=== PATIENT | female | born 1985 | race Caucasian/White ===

== ENCOUNTER 2018-12-30 13:29 | Emergency (ER) | payer OTHER ==
[2018-12-30 13:34] VITALS: BP 107/65; PULSE 81; TEMP 98.3; BMI 30.2
--- NOTE | 2018-12-30 13:57 | PDOC ---
History of Present Illness - General Chief Complaint: Urinary Problem Stated Complaint: POSSIBLE UTI Time Seen by Provider: 12/30/18 13:43 History Source: Patient Exam Limitations: No Limitations - History of Present Illness Initial Comments: 12/30/18 14:12 Complaints of new onset of burning approximately 2 to 3 hours ago. Suffers from UTIs was and was concerned about recurrence. Last urinary tract infection was maximally 3 months ago that was treated with antibiotics. Patient is uncertain as to the name of the medications. Is this a multiple visit Asthma Patient?: Yes Timing/Duration: unsure, 24 hours Severity: mild Associated Symptoms: reports: denies symptoms Past History - Travel Traveled outside of the country in the last 30 days: No Close contact w/someone who was outside of country & ill: No - Past Medical History Allergies/Adverse Reactions: Allergies Allergy/AdvReac Type Severity Reaction Status Date / Time Penicillins Allergy Verified 12/30/18 13:34 Home Medications: Ambulatory Orders NK [No Known Home Medication] 08/19/17 COPD: No Thyroid Disease: Yes - Surgical History Abdominal Surgery: Yes (tummy tuck, lipo) - Immunization History Immunization Up to Date: Yes - Psycho Social/Smoking Cessation Hx Smoking History: Never smoked Have you smoked in the past 12 months: No Hx Alcohol Use: No Drug/Substance Use Hx: No Substance Use Type: None Review of Systems - Review of Systems Able to Perform ROS?: Yes Is the patient limited Latvian proficient: Yes Constitutional: Yes: Symptoms Reported, See HPI, Malaise HEENTM: Yes: See HPI. No: Symptoms Reported Respiratory: Yes: See HPI. No: Symptoms reported, Cough ABD/GI: Yes: See HPI. No: Symptoms Reported, Constipated, Diarrhea, Nausea : Yes: Symptoms Reported, See HPI, Dysuria Musculoskeletal: No: Symptoms Reported Integumentary: No: Symptoms Reported Neurological: Yes: See HPI. No: Symptoms reported All Other Systems: Reviewed and Negative *Physical Exam - Vital Signs Last Vital Signs Temp Pulse Resp BP Pulse Ox 98.3 F 81 18 107/65 99 12/30/18 13:32 12/30/18 13:32 12/30/18 13:32 12/30/18 13:32 12/30/18 13:32 - Physical Exam General Appearance: Yes: Nourished, Appropriately Dressed HEENT: positive: JAMIE, Normal ENT Inspection, TMs Normal, Pharynx Normal Neck: positive: Tender, Supple Respiratory/Chest: positive: Lungs Clear Gastrointestinal/Abdominal: positive: Soft. negative: Tender Musculoskeletal: positive: Normal Inspection Extremity: positive: Normal Capillary Refill, Normal Inspection, Normal Range of Motion Integumentary: positive: Normal Color, Dry, Warm Neurologic: positive: kst operator II-XII NML intact, Fully Oriented, Alert, Normal Mood/ Affect, Normal Response, Motor Strength 06/24 Discharge - Discharge Information Problems reviewed: Yes Clinical Impression/Diagnosis: Dysuria Condition: Stable Disposition: HOME - Admission No - Follow up/Referral Referrals: Juan Jose Jorge MD [Primary Care Provider] - - Patient Discharge Instructions Patient Printed Discharge Instructions: DI for Dysuria -- Adult Additional Instructions: Rest, drink lots of fluids: Teas, water, soups Avoid contact with others until fevers and symptoms resolved Lots of handwashing and good hygiene Continue [id number] medications for symptomatic relief Tylenol or Motrin for fever and pain Return to emergency department for worsened symptoms, fevers, dehydration - Post Discharge Activity
[2018-12-30 14:43] LABS: PH,URINE 5.5 (5.0-8.0); URINE APPEARANCE CLEAR; URINE BILIRUBIN NEGATIVE (NEGATIVE); URINE COLOR YELLOW; URINE GLUCOSE (UA) NEGATIVE (NEGATIVE); URINE KETONE NEGATIVE (NEGATIVE); URINE LEUK ESTERASE NEGATIVE (NEGATIVE); URINE NITRITE NEGATIVE (NEGATIVE); URINE PROTEIN NEGATIVE (NEGATIVE); URINE UROBILINOGEN 0.2 mg/dL (0.2-1.0)
== END 2018-12-30 15:06 | disposition home or self-care (01) ==
LOC: JERFT 13:29
DX: R30.0 Dysuria (principal); Z87.440 Personal history of urinary (tract) infections; Z88.0 Allergy status to penicillin
CPT/HCPCS: 81003; 84703; 87086; 99282-25

== ENCOUNTER 2019-08-24 10:58 | Emergency (ER) | payer OTHER ==
--- NOTE | 2019-08-24 11:18 | PDOC ---
Rapid Medical Evaluation Chief Complaint: Abnormal Lab Results (Outside) Time Seen by Provider: 08/24/19 11:12 Medical Evaluation: Allergies Allergy/AdvReac Type Severity Reaction Status Date / Time Penicillins Allergy Verified 12/30/18 13:34 08/24/19 11:15 HPI: The patient is a 33 F with no sig Pmhx presents for EKG requested by PCP for routine exam. 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 report no symptoms ROS: NEGATIVE: difficulty breathing, shortness of breath, chest pain, lightheadedness, dizziness, nausea, vomiting and diarrhea. Other 12 point ROS reviewed and negative. Exam: General: NAD, Well-Appearing, Awake, Alert Oriented x3. Vital signs stable. ENT: No rhinorrhea or nasal congestion. Neck: FROM, no midline tenderness. Lungs: Clear to auscultation bilaterally without wheezes, rhonchi or rales. Normal excursion. Patient is able to speak in full sentences. Heart: HR: [ ] Regular rhythm, S1-S2 present, no murmurs rubs or gallops. Abdomen: Non-distended. MSK/Extremities: No decrease ROM, No obvious deformities. No obvious cyanosis noted. Neuro: Normal Gait, Cranial Nerves II through XII Grossly Intact. Skin: No obvious rashes, bruising. Color Normal Appearing. Assessment/Plan: routine exam. ASSESSMENT: Denies recent travel and known Covid exposure. Treatment: EKG done pt stable for d/c Discharge Disposition - Diagnosis Nonspecific abnormal electrocardiogram (ECG) (EKG) - Discharge Dispostion Disposition: HOME Condition at time of disposition: Stable Decision to Admit order: No - Referrals Referrals: Juan Jose Jorge MD [Primary Care Provider] - - Patient Instructions - Post Discharge Activity
[2019-08-24 11:34] VITALS: BP 118/69; PULSE 88; TEMP 98.1; BMI 24.3
--- NOTE | 2019-08-25 14:06 | EKG ---
Test Reason : Blood Pressure : / mmHG Vent. Rate : 074 BPM Atrial Rate : 074 BPM P-R Int : 144 ms QRS Dur : 088 ms QT Int : 420 ms P-R-T Axes : 033 022 041 degrees QTc Int : 466 ms NORMAL SINUS RHYTHM NORMAL ECG NO PREVIOUS ECGS AVAILABLE Confirmed by STEPHANIE PARMAR MD ([id number]) on 08/25/2019 2:06:25 PM Referred By: Confirmed By:STEPHANIE PARMAR MD
== END 2019-08-24 11:36 | disposition home or self-care (01) ==
LOC: JER 10:58
DX: R94.31 Abnormal electrocardiogram [ECG] [EKG] (principal)
CPT/HCPCS: 93005; 93010; 99283-25

== ENCOUNTER 2020-07-02 19:50 | Emergency (ER) | payer OTHER ==
[2020-07-02 19:58] VITALS: BP 112/72; PULSE 88; TEMP 98.3; BMI 29.2
[2020-07-02 21:12] LABS: EPI CELLS 20 /uL (0-25.1); HYALINE CASTS 1 /uL (0-3.1); PH,URINE 5.5 (5.0-8.0); URINE APPEARANCE CLOUDY; URINE BACTERIA 1462 /uL (0-1359); URINE BILIRUBIN NEGATIVE (NEGATIVE); URINE COLOR YELLOW; URINE GLUCOSE (UA) NEGATIVE (NEGATIVE); URINE KETONE TRACE (NEGATIVE); URINE LEUK ESTERASE 2+ (NEGATIVE); URINE NITRITE NEGATIVE (NEGATIVE); URINE PROTEIN TRACE (NEGATIVE); URINE UROBILINOGEN 0.2 mg/dL (0.2-1.0); URINE WBC 1626 /uL (0-25.8)
[2020-07-02 21:19] LABS: HCG,QUALITATIVE URINE NEGATIVE; URINE RBC 59.2 /uL (0-23.9)
[2020-07-02] MEDS ORDERED: CEPHALEXIN MONOHYDRATE 500 MG CAPSULE (UD) PO ONE (21:33)
[2020-07-02] MEDS ORDERED: CEPHALEXIN MONOHYDRATE 500 MG CAPSULE (UD) ONE (21:50)
[2020-07-03] MEDS ORDERED: PHENAZOPYRIDINE HCL 100 MG TABLET (FP) PO SCH (09:00)
== END 2020-07-02 21:52 | disposition home or self-care (01) ==
LOC: JER 19:50
DX: N30.00 Acute cystitis without hematuria (principal)
CPT/HCPCS: 81003; 84703; 87086; 87186; 99284-25

== ENCOUNTER 2020-08-07 09:23 | Emergency (ER) | payer OTHER ==
[2020-08-07 09:29] VITALS: BP 127/81; PULSE 115; TEMP 98.6; BMI 29.2
[2020-08-07] MEDS ORDERED: guaiFENesin/D-METHORPHAN HB 10 ML UNIT-DOSE CUPS PO ONE (09:43)
[2020-08-07] MEDS ORDERED: ALBUTEROL SO4 2.5/IPRATROPIUM 0.5 INH SOL 3 ML VIAL.NEB. NEB ONE ×2 (09:43→10:08)
[2020-08-07] MEDS ORDERED: ACETAMINOPHEN 325 MG TABLET (FP) PO ONE (09:43)
[2020-08-07] MEDS ORDERED: ACETAMINOPHEN 325 MG TABLET (FP) ONE (10:08)
[2020-08-07] MEDS ORDERED: guaiFENesin/D-METHORPHAN HB 10 ML UNIT-DOSE CUPS ONE (10:08)
== END 2020-08-07 13:12 | disposition home or self-care (01) ==
LOC: JER 09:23
PROC: 3E0F7GC Introduction of Other Therapeutic Substance into Respiratory Tract, Via Natural or Artificial Opening (ICD-10-PCS; principal; 2020-08-07)
DX: R05 Cough (principal)
CPT/HCPCS: 71046-TC-FY; 99283-25

== ENCOUNTER 2020-12-04 07:04 | Emergency (ER) | payer OTHER ==
[2020-12-04 08:23] VITALS: BP 112/70; PULSE 80; TEMP 97.5; BMI 26.3
[2020-12-04 09:44] LABS: EPI CELLS 22 /uL (0-25.1); HYALINE CASTS 2 /uL (0-3.1); PH,URINE 5.5 (5.0-8.0); URINE APPEARANCE CLOUDY; URINE BACTERIA >9,000 /uL (0-1359); URINE BILIRUBIN NEGATIVE (NEGATIVE); URINE COLOR YELLOW; URINE GLUCOSE (UA) NEGATIVE (NEGATIVE); URINE KETONE NEGATIVE (NEGATIVE); URINE LEUK ESTERASE 3+ (NEGATIVE); URINE NITRITE NEGATIVE (NEGATIVE); URINE PROTEIN 1+ (NEGATIVE); URINE RBC 56 /uL (0-23.9); URINE WBC 3540 /uL (0-25.8)
== END 2020-12-04 10:55 | disposition home or self-care (01) ==
LOC: JER 07:04 → JERFT 07:04
DX: N30.00 Acute cystitis without hematuria (principal)
CPT/HCPCS: 36415; 81003; 87086; 87186; 87491; 87591; 99283-25

== ENCOUNTER 2021-02-11 14:47 | Emergency (ER) | payer OTHER ==
[2021-02-12 07:08] LABS: SARS-CoV-2 NAA Not Detected (Not Detected)
== END 2021-02-11 15:14 | disposition home or self-care (01) ==
LOC: JVIRT 14:47
DX: R09.81 Nasal congestion (principal); Z20.822 Contact with and (suspected) exposure to COVID-19
CPT/HCPCS: C9803; Q3014-GT; U0003; U0005

== ENCOUNTER 2021-06-07 06:12 | Day surgery (SDC) | payer OTHER ==
[2021-06-07] MEDS ORDERED: CYANOCOBALAMIN (VITAMIN B-12) 1000 MCG/1 ML VIAL IM ONE (10:00)
[2021-06-07] MEDS ORDERED: IRON SUCROSE INJECTION 300 MG in SODIUM CHLORIDE 250 ML IVPB ONE (10:00)
[2021-06-07 16:17] VITALS: BP 92/53; PULSE 83; TEMP 98.2
== END 2021-06-07 11:30 | disposition home or self-care (01) ==
LOC: JONCNONCHE 06:12
PROVIDERS: ATTEND Internal Medicine Hematology & Oncology
PROC: 3E033GC Introduction of Other Therapeutic Substance into Peripheral Vein, Percutaneous Approach (ICD-10-PCS; principal; 2021-06-07)
DX: E61.1 Iron deficiency (principal); E53.8 Deficiency of other specified B group vitamins
CPT/HCPCS: 96365; 96366; J1756

== ENCOUNTER 2021-06-14 06:24 | Day surgery (SDC) | payer OTHER ==
[2021-06-14] MEDS ORDERED: CYANOCOBALAMIN (VITAMIN B-12) 1000 MCG/1 ML VIAL IM ONE (10:00)
[2021-06-14] MEDS ORDERED: IRON SUCROSE INJECTION 300 MG in SODIUM CHLORIDE 250 ML IVPB ONE (10:00)
[2021-06-14 16:43] VITALS: TEMP 98.2
[2021-06-14 16:44] VITALS: BP 117/73; PULSE 74
== END 2021-06-14 11:50 | disposition home or self-care (01) ==
LOC: JONCNONCHE 06:24
PROVIDERS: ATTEND Internal Medicine Hematology & Oncology
PROC: 3E033GC Introduction of Other Therapeutic Substance into Peripheral Vein, Percutaneous Approach (ICD-10-PCS; principal; 2021-06-14)
DX: D50.9 Iron deficiency anemia, unspecified (principal)
CPT/HCPCS: 96365; J1756

== ENCOUNTER 2021-06-21 08:47 | Day surgery (SDC) | payer OTHER ==
[2021-06-21] MEDS ORDERED: IRON SUCROSE INJECTION 300 MG in SODIUM CHLORIDE 250 ML IVPB ONE (10:00)
[2021-06-21] MEDS ORDERED: CYANOCOBALAMIN (VITAMIN B-12) 1000 MCG/1 ML VIAL IM ONE (10:00)
[2021-06-21 18:59] VITALS: TEMP 98.5
[2021-06-21 19:04] VITALS: BP 110/64; PULSE 84
== END 2021-06-21 17:30 | disposition home or self-care (01) ==
LOC: JONCCHEMO 08:47
PROVIDERS: ATTEND Internal Medicine Hematology & Oncology
PROC: 3E033GC Introduction of Other Therapeutic Substance into Peripheral Vein, Percutaneous Approach (ICD-10-PCS; principal; 2021-06-21)
DX: E61.1 Iron deficiency (principal)
CPT/HCPCS: 96365; J1756

== ENCOUNTER 2021-06-28 07:04 | Day surgery (SDC) | payer OTHER ==
[2021-06-28] MEDS ORDERED: IRON SUCROSE INJECTION 300 MG in SODIUM CHLORIDE 250 ML IVPB ONE (10:00)
[2021-06-28] MEDS ORDERED: CYANOCOBALAMIN (VITAMIN B-12) 1000 MCG/1 ML VIAL IM ONE (12:00)
[2021-06-28 17:49] VITALS: TEMP 98.5
[2021-06-28 17:50] VITALS: BP 115/64; PULSE 88
== END 2021-06-28 11:25 | disposition home or self-care (01) ==
LOC: JONCNONCHE 07:04
PROVIDERS: ATTEND Internal Medicine Hematology & Oncology
PROC: 3E033GC Introduction of Other Therapeutic Substance into Peripheral Vein, Percutaneous Approach (ICD-10-PCS; principal; 2021-06-28)
DX: D50.9 Iron deficiency anemia, unspecified (principal)
CPT/HCPCS: 96365; J1756

== ENCOUNTER 2021-06-28 19:19 | Emergency (ER) | payer OTHER ==
[2021-06-28 19:25] VITALS: BP 92/62; PULSE 91; TEMP 97.8; BMI 23.8
[2021-06-28] MEDS ORDERED: SODIUM CHLORIDE 0.9% 500 ML INFUS.BAG IV ONE (20:52)
[2021-06-28 21:48] LABS: EOS % 3.7 % (0-4.5); HEMATOCRIT 39.3 % (32.4-45.2); HEMOGLOBIN 12.7 GM/dL (10.7-15.3); LYMPH % 36.7 % (8-40); MCH 26.3 pg (25.7-33.7); MCHC 32.3 g/dl (32.0-36.0); MEAN CELL VOLUME 81.4 fl (80-96); MEAN PLT VOLUME 7.8 fl (7.5-11.1); MONO % 9.3 % (3.8-10.2); NEUT % 48.3 % (42.8-82.8); PLATELET COUNT 328 10^3/uL (134-434); RBC 4.82 M/mm3 (3.60-5.2); RDW 15.6 % (11.6-15.6)
[2021-06-28 22:10] LABS: CALCIUM 8.8 mg/dL (8.5-10.1)
[2021-06-28 22:11] LABS: ALBUMIN 3.5 g/dl (3.4-5.0); BLOOD UREA NITROGEN 10.8 mg/dL (7-18)
[2021-06-28 22:14] LABS: CREATININE 0.5 mg/dL (0.55-1.3)
[2021-06-28 22:14] LABS: EPI CELLS 28 /uL (0-25.1); HYALINE CASTS 2 /uL (0-3.1); PH,URINE 5.5 (5.0-8.0); URINE APPEARANCE CLEAR; URINE BACTERIA 254 /uL (0-1359); URINE BILIRUBIN NEGATIVE (NEGATIVE); URINE COLOR YELLOW; URINE GLUCOSE (UA) NEGATIVE (NEGATIVE); URINE KETONE NEGATIVE (NEGATIVE); URINE LEUK ESTERASE TRACE (NEGATIVE); URINE NITRITE NEGATIVE (NEGATIVE); URINE PROTEIN NEGATIVE (NEGATIVE); URINE RBC 39 /uL (0-23.9); URINE UROBILINOGEN 0.2 mg/dL (0.2-1.0); URINE WBC 23 /uL (0-25.8)
[2021-06-28 22:15] LABS: BILIRUBIN,TOTAL 0.2 mg/dL (0.2-1)
[2021-06-28 22:16] LABS: TOT PROT 7.2 g/dl (6.4-8.2)
== END 2021-06-29 00:16 | disposition home or self-care (01) ==
LOC: JER 19:19
DX: R53.83 Other fatigue (principal)
CPT/HCPCS: 0241U-QW; 36415; 80053; 81003; 85025; 87077; 87086; 87186; 87807; 99283-25; C9803-CS; U0003; U0005

== ENCOUNTER 2021-09-27 07:01 | Day surgery (SDC) | payer OTHER ==
[2021-09-27 09:47] VITALS: TEMP 97.8
[2021-09-27] MEDS ORDERED: CYANOCOBALAMIN (VITAMIN B-12) 1000 MCG/1 ML VIAL IM ONE (10:00)
[2021-09-27] MEDS ORDERED: IRON SUCROSE INJECTION 200 MG in SODIUM CHLORIDE 100 ML IVPB ONE (10:00)
[2021-09-27 10:21] VITALS: BP 103/65; PULSE 80; RESP 18
== END 2021-09-27 10:21 | disposition home or self-care (01) ==
LOC: JONCNONCHE 07:01
PROVIDERS: ATTEND Internal Medicine Hematology & Oncology
PROC: 3E033GC Introduction of Other Therapeutic Substance into Peripheral Vein, Percutaneous Approach (ICD-10-PCS; principal; 2021-09-27)
PROC: 3E013GC Introduction of Other Therapeutic Substance into Subcutaneous Tissue, Percutaneous Approach (ICD-10-PCS; 2021-09-27)
DX: D50.9 Iron deficiency anemia, unspecified (principal)
CPT/HCPCS: 96365; 96372; J1756

== ENCOUNTER 2021-10-04 07:06 | Day surgery (SDC) | payer OTHER ==
[2021-10-04] MEDS ORDERED: CYANOCOBALAMIN (VITAMIN B-12) 1000 MCG/1 ML VIAL IM ONE (09:30)
[2021-10-04] MEDS ORDERED: IRON SUCROSE INJECTION 200 MG in SODIUM CHLORIDE 100 ML IVPB ONE (10:00)
[2021-10-04 17:01] VITALS: BP 104/57; PULSE 83; RESP 16; TEMP 98.3
== END 2021-10-04 11:20 | disposition home or self-care (01) ==
LOC: JONCNONCHE 07:06
PROVIDERS: ATTEND Internal Medicine Hematology & Oncology
PROC: 3E033GC Introduction of Other Therapeutic Substance into Peripheral Vein, Percutaneous Approach (ICD-10-PCS; principal; 2021-10-04)
DX: D50.9 Iron deficiency anemia, unspecified (principal)
CPT/HCPCS: 96365; J1756

== ENCOUNTER 2021-10-11 07:48 | Day surgery (SDC) | payer OTHER ==
[2021-10-11] MEDS ORDERED: CYANOCOBALAMIN (VITAMIN B-12) 1000 MCG/1 ML VIAL IM ONE (10:00)
[2021-10-11] MEDS ORDERED: IRON SUCROSE INJECTION 200 MG in SODIUM CHLORIDE 100 ML IVPB ONE (10:00)
[2021-10-11 16:38] VITALS: BP 91/60; PULSE 80; RESP 18; TEMP 98.3
== END 2021-10-11 10:15 | disposition home or self-care (01) ==
LOC: JONCNONCHE 07:48
PROVIDERS: ATTEND Internal Medicine Hematology & Oncology
PROC: 3E033GC Introduction of Other Therapeutic Substance into Peripheral Vein, Percutaneous Approach (ICD-10-PCS; principal; 2021-10-11)
DX: D50.9 Iron deficiency anemia, unspecified (principal)
CPT/HCPCS: 96365; J1756

== ENCOUNTER 2021-10-18 07:29 | Day surgery (SDC) | payer OTHER ==
[2021-10-18] MEDS ORDERED: IRON SUCROSE INJECTION 200 MG in SODIUM CHLORIDE 100 ML IVPB ONE (10:00)
[2021-10-18 10:03] VITALS: RESP 18; TEMP 97.9
[2021-10-18] MEDS ORDERED: CYANOCOBALAMIN (VITAMIN B-12) 1000 MCG/1 ML VIAL IM ONE (10:30)
[2021-10-18 12:06] VITALS: BP 119/69; PULSE 79
== END 2021-10-18 11:40 | disposition home or self-care (01) ==
LOC: JONCNONCHE 07:29
PROVIDERS: ATTEND Internal Medicine Hematology & Oncology
PROC: 3E033GC Introduction of Other Therapeutic Substance into Peripheral Vein, Percutaneous Approach (ICD-10-PCS; principal; 2021-10-18)
DX: D50.9 Iron deficiency anemia, unspecified (principal)
CPT/HCPCS: 96365; J1756

== ENCOUNTER 2023-02-16 20:40 | Emergency (ER) | payer OTHER | END 2023-02-16 21:21 | disposition home or self-care (01) | LOC: JER 20:40 | DX: J02.9 Acute pharyngitis, unspecified (principal); R49.0 Dysphonia; Z20.822 Contact with and (suspected) exposure to COVID-19 | CPT/HCPCS: 0241U-QW; 99283-25 ==

== ENCOUNTER 2023-10-16 16:23 | Emergency (ER) | payer OTHER ==
[2023-10-16 16:30] VITALS: BP 110/75; PULSE 83; RESP 18; BMI 24.7
[2023-10-16 16:52] LABS: HCG,QUALITATIVE URINE Negative
[2023-10-16 17:05] LABS: EPI CELLS 7 /uL (0-25.1); HYALINE CASTS 0 /uL (0-3.1); URINE APPEARANCE CLEAR; URINE BACTERIA >9,000 /uL (0-1359); URINE BILIRUBIN NEGATIVE (NEGATIVE); URINE COLOR YELLOW; URINE GLUCOSE (UA) NEGATIVE (NEGATIVE); URINE KETONE NEGATIVE (NEGATIVE); URINE LEUK ESTERASE 1+ (NEGATIVE); URINE NITRITE NEGATIVE (NEGATIVE); URINE PROTEIN NEGATIVE (NEGATIVE); URINE RBC 76 /uL (0-23.9); URINE UROBILINOGEN 0.2 mg/dL (0.2-1.0); URINE WBC 118 /uL (0-25.8)
== END 2023-10-16 17:26 | disposition home or self-care (01) ==
LOC: JERFT 16:23
DX: N39.0 Urinary tract infection, site not specified (principal); R30.0 Dysuria
CPT/HCPCS: 81003; 84703; 87086; 87186; 99283-25

== ENCOUNTER 2024-10-23 18:11 | Emergency (ER) | payer OTHER ==
[2024-10-23 18:18] VITALS: BP 107/83; PULSE 88; RESP 20; TEMP 98.8; BMI 27.1
[2024-10-23 19:49] LABS: ABSOLUTE IMMATURE GRANULOCYTES 0.03 x10^3/uL (0.0-0.031); BASOPHILS # 0.05 x10^3/uL (0.01-0.08); EOSINOPHIL % 3.0 % (0.7-5.8); EOSINOPHILS # 0.27 x10^3/uL (0.04-0.36); MCHC 31.5 g/dl (32.2-35.5); MEAN CELL VOLUME 86.3 fl (79.4-94.8); MEAN PLT VOLUME 8.9 fl (9.4-12.3); MONOCYTE # 0.57 x10^3/uL (0.24-0.86); MONOCYTE % 6.2 % (4.7-12.5); RDW 13.7 % (12.1-16.8)
[2024-10-23 20:16] LABS: GLUCOSE,RANDOM 129.0 mg/dL (74-106)
[2024-10-23 20:17] LABS: TOT PROT 7.2 g/dl (6.4-8.2)
[2024-10-23 20:19] LABS: ALK PHOS 80.0 U/L (40-150)
[2024-10-23 20:22] LABS: CREATININE 0.82 mg/dL (0.55-1.3); SGOT/AST 14.0 U/L (5-34); SGPT/ALT 9.0 U/L (0-55)
[2024-10-23 20:44] LABS: HCV DIAGNOSTIC IN-HOUSE W/RFLX NON-REACTIVE (NONREACTIVE); HIV INTERPRETATION NEGATIVE (NEGATIVE)
[2024-10-23 20:54] LABS: ERYTHROCYTE SEDIMENTATION RATE 18 mm/hr (0-20)
[2024-10-23 21:31] LABS: CO2 19.0 mmol/L (21-32)
== END 2024-10-23 21:41 | disposition home or self-care (01) ==
LOC: JER 18:11
DX: U07.1 COVID-19 (principal); G43.909 Migraine, unspecified, not intractable, without status migrainosus; R05.9 Cough, unspecified; R09.81 Nasal congestion
CPT/HCPCS: 36415; 70450-TC; 80053; 85025; 85651; 86140; 86780; 86803; 87389; 87491; 87591; 87637-QW; 99284-25